=== PATIENT | male | born 1990 | race Caucasian/White ===

== ENCOUNTER 2019-03-27 08:35 | Emergency (ER) | payer OTHER ==
[~2019-03-27] VITALS: Ht 182.9 cm; Wt 88.5 kg
[2019-03-27 08:42] VITALS: Ht 182.9 cm; Wt 88.5 kg
[2019-03-27 10:35] VITALS: BP 159/86
== END 2019-03-27 10:35 | disposition home or self-care (01) ==
LOC: ED 08:35
DX: S47.2XXA Crushing injury of left shoulder and upper arm, initial encounter (principal); W23.0XXA Caught, crushed, jammed, or pinched between moving objects, initial encounter; Y93.89 Activity, other specified; Y92.89 Other specified places as the place of occurrence of the external cause; Y99.8 Other external cause status